=== PATIENT | male | born 1995 | race Caucasian/White ===

== ENCOUNTER 2019-04-30 20:53 | Emergency (ER) | payer OTHER ==
[~2019-04-30] VITALS: Ht 180.3 cm; Wt 113.4 kg
[2019-04-30 21:05] VITALS: BP 151/74
[2019-04-30 21:12] VITALS: BP 145/76
--- NOTE | 2019-04-30 21:18 | NUR ---
PATIENT PRESENTS TO ED C/O SORE THROAT AND NON-PRODUCTIVE COUGH X2 WEEKS. NO RESPIRATORY DISTRESS. 10 PAIN. AFEBRILE. VSS. DENIES N/V/D; SKIN IS PINK/WARM/DRY; AAOX4 WITH EVEN AND STEADY GAIT; LUNGS CLEAR BL; HR EVEN AND REGULAR; PT DENIES ANY FEVER, CP, SOB, OR COUGH AT THIS TIME; VSS; PATIENT POSITIONED FOR COMFORT; HOB ELEVATED; BEDRAILS UP X2; BED DOWN. ER MD MADE AWARE OF PT STATUS.
--- NOTE | 2019-04-30 21:43 | NUR ---
Patient discharged with v/s stable. Written and verbal after care instructions given and explained. Pt encouraged to rest and drink plenty of fluids. Patient alert, oriented and verbalized understanding of instructions. Ambulatory with steady gait. All questions addressed prior to discharge. ID band removed. Patient advised to follow up with PMD. Rx of IBUPROFEN 600MG, PROMETHAZINE DM 6.25MG, AND PREDNISONE 20MG WAS given. Patient educated on indication of medication including possible reaction and side effects. Opportunity to ask questions provided and answered.
== END 2019-04-30 21:43 | disposition home or self-care (01) ==
LOC: MED 20:53
DX: J06.9 Acute upper respiratory infection, unspecified (principal)
CPT/HCPCS: 99283

== ENCOUNTER 2019-07-22 13:01 | Emergency (ER) | payer OTHER ==
[~2019-07-22] VITALS: Ht 185.4 cm; Wt 120.4 kg
[2019-07-22] MEDS ORDERED: IBUPROFEN 600 MG TAB PO STA (13:19)
[2019-07-22] MEDS ORDERED: ACETAMINOPHEN EXTRA STRENGTH 500 MG TAB PO STA (13:19)
--- NOTE | 2019-07-22 13:21 | NUR ---
PT TO BED 3 WITH STEADY GAIT
--- NOTE | 2019-07-22 13:22 | NUR ---
C/O COLD S/S X 2 DAYS. 100.6 ORALLY TEMP AT TRIAGE. STATES PRODUCTIVE COUGHING, RHINORRHEA, SORE THROAT, NASAL CONGESTION. +NAUSEA AT THIS TIME. DID NOT RECEIVE FLU VACCINE THIS SEASON. DENIES PM Addendum: 07/22/19 at 1412 by RYLEY +F/C
--- NOTE | 2019-07-22 13:28 | NUR ---
MOTRIN AND TYLENOL PO ADMINISTERED FOR FEVER OF 100.6 ORALLY
--- NOTE | 2019-07-22 13:29 | NUR ---
FLU SWAB COLLECTED
[2019-07-22] MEDS ORDERED: OSELTAMIVIR PHOSPHATE 75 MG CAP PO ONE (15:00)
[2019-07-22 15:14] VITALS: BP 145/70
--- NOTE | 2019-07-22 15:14 | NUR ---
Patient discharged with v/s stable. Written and verbal after care instructions given and explained. Patient alert, oriented and verbalized understanding of instructions. Ambulatory with by parent. All questions addressed prior to discharge. ID band removed. Patient advised to follow up with PMD. Rx of Ibuprofen, Tamiflu given. Patient educated on indication of medication including possible reaction and side effects. Opportunity to ask questions provided and answered.
== END 2019-07-22 15:14 | disposition home or self-care (01) ==
LOC: MED 13:01
DX: J10.1 Influenza due to other identified influenza virus with other respiratory manifestations (principal)
CPT/HCPCS: 87804; 99284